=== PATIENT | female | born 1965 | race Caucasian/White ===

== ENCOUNTER 2017-08-27 10:29 | Emergency (ER) | payer BC ==
[2017-08-27 10:36] VITALS: BP 139/86
--- NOTE | 2017-08-27 12:00 | UC ---
Tamera Rich Gabriel, scribed for Leonides Smith MD on 08/27/17 at 1147 . Headache HPI - HPI Summary HPI Summary: This patient is a 52 year old F presenting to [facility] with a chief complaint of MADISON since 5 days ago. The patient rates the pain 5/10 in severity. Patient reports chest congestion, fatigue, dizziness, post nasal drip, some rhinorrhea, lungs burn, heaviness in chest, and SOB. Dizziness is aggravated by movement. Patient denies coughing, fever, LOC, vision or speak changes, numbness or weakness unilaterally in extremities. Patient states she gets an annual sinus infection and bronchitis. She reports that these symptoms feel similar to previous years but slightly worse this year. She describes her dizziness as feeling woozy and off balance. She reports having difficulty driving here ( 3min) due to dizziness. She exercises often. Pt states her mother had peripheral artery disease without excessive smoking or any other risk factors except HTN. - History Of Current Complaint Chief Complaint: UCGeneralIllness Stated Complaint: DIZZY, HEADACHE, SINUS PRESSURE Hx Obtained From: Patient Hx Last Menstrual Period: "years ago." Onset/Duration: Lasting Days - 5, Still Present Onset Of Symptoms: Gradual, Still Present Pain Intensity: 5 Pain Scale Used: 0-10 Numeric Timing: Constant Associated Signs And Symptoms: Positive: Negative - coughing, fever, LOC, vision or speak changes. numbness or weakness unilaterally in extremities., Other (Noted In Comments) - chest congestion, fatigue, dizziness, post nasal drip, some rhinorrhea, lungs burn, heaviness in chest, and SOB - Allergies/Home Medications Allergies/Adverse Reactions: Allergies Allergy/AdvReac Type Severity Reaction Status Date / Time Hydrocodone Allergy Rash And Verified 08/27/17 10:36 Itching Home Medications: Home Medications Diphenhydramine-Phenylephrine- [Mucinex Multi-Symptom Col 12.5-5-325 mg/10Ml] 30 ml PO BID PRN 08/27/17 [History Confirmed 08/27/17] PMH/Surg Hx/FS Hx/Imm Hx Previously Healthy: No Cardiovascular History: Hypertension Other History Of: Negative For: HIV, Hepatitis B, Hepatitis C, Anticoagulant Therapy - Surgical History Surgical History: Yes Surgery Procedure, Year, and Place: ectopic 1984. right foot bunion reconstruction 2000. tubal ligation. partial hysterectomy - Family History Known Family History: Positive: Hypertension, Other - peripheral artery disease Negative: Cardiac Disease - Social History Alcohol Use: Occasionally Substance Use Type: None Smoking Status (MU): Light Every Day Tobacco Smoker Type: Cigarettes Amount Used/How Often: 4-5 cig/day Have You Smoked in the Last Year: No When Did the Patient Quit Smoking/Using Tobacco: 25 years - Immunization History Most Recent Influenza Vaccination: NOT UTD Review of Systems Constitutional: Fatigue ENT: Nasal Discharge, Other - post nasal drip Respiratory: Shortness Of Breath, Other - chest congestion, "burning in lungs", heaviness in chest Neurological: Headache, Other - dizziness All Other Systems Reviewed And Are Negative: Yes Physical Exam Triage Information Reviewed: Yes Appearance: Well-Appearing Vital Signs: Initial Vital Signs Temp 97.2 F 08/27/17 10:32 Pulse 83 08/27/17 10:32 Resp 18 08/27/17 10:32 BP 139/86 08/27/17 10:32 Pulse Ox 99 08/27/17 10:32 Vital Signs Reviewed: Yes Eyes: Positive: Conjunctiva Clear ENT: Positive: Pharynx normal, Nasal congestion, TMs normal Neck: Positive: Supple Respiratory: Positive: Chest non-tender, Lungs clear, Normal breath sounds Cardiovascular: Positive: RRR, No Murmur Abdomen Description: Positive: Nontender Musculoskeletal: Positive: ROM Intact Neurological: Positive: Alert, Muscle Tone Normal Psychological: Positive: Normal Response To Family Skin Exam: Normal Diagnostics - EKG Cardiac Rate: NL Cardiac Rhythm: Sinus: Normal - at 81 BPM , Other Rhythm: Normal - normal MO, no QST abnormalities Headache Course/Dx - Course Course Of Treatment: 52 yr old female with the complaint of chest heaviness, and dizziness, and also right side headache. - Differential Dx/Diagnosis Provider Diagnoses: chest heaviness. headache. sob Discharge - Discharge Plan Condition: Good Disposition: TRANS HIGHER LVL OF CARE FAC Referrals: Mushtaq Harris MD [Primary Care Provider] - The documentation as recorded by the Tamera judge Gabriel accurately reflects the service I personally performed and the decisions made by me, Leonides Smith MD.
[2017-08-28] MEDS ORDERED: Aspirin Low Dose CHEW TAB* 81 MG PO ONE (11:49)
== END 2017-08-27 12:09 | disposition short-term general hospital (02) ==
LOC: UCEAST 10:29
DX: R07.9 Chest pain, unspecified (principal); R51 Headache; R06.02 Shortness of breath; Z88.5 Allergy status to narcotic agent; I10 Essential (primary) hypertension; F17.210 Nicotine dependence, cigarettes, uncomplicated
CPT/HCPCS: 93005; 99213; A9270-GY; G0463

== ENCOUNTER 2017-08-27 12:23 | Emergency (ER) | payer BC ==
[2017-08-27 12:54] LABS: Hematocrit 44 % (35-47); Hemoglobin 15.2 g/dl (12.0-16.0); Mean Corpuscular HGB Conc 35 g/dl (31-36); Mean Corpuscular Hemoglobin 31 pg (27-31); Mean Corpuscular Volume 90 fL (80-97); Mean Platelet Volume 9 um3 (7.4-10.4); Red Blood Count 4.86 10^6/ul (4.0-5.4); Red Cell Distribution Width 13 % (10.5-15); White Blood Count 8.6 10^3/ul (3.5-10.8)
--- NOTE | 2017-08-27 13:20 | RAD ---
HISTORY: Chest pain COMPARISONS: None VIEWS: 1: frontal portable view of the chest at 12:50 PM FINDINGS: LINES AND TUBES: None. CARDIOMEDIASTINAL SILHOUETTE: The cardiomediastinal silhouette is normal for portable technique. PLEURA: The costophrenic angles are sharp. No pleural abnormalities are noted. LUNG PARENCHYMA: The lungs are clear. ABDOMEN: The upper abdomen is clear. There is no subphrenic gas. BONES AND SOFT TISSUES: No bone or soft tissue abnormalities are noted. IMPRESSION: NO ACTIVE CARDIOPULMONARY DISEASE.
[2017-08-27 13:23] LABS: Albumin 4.2 g/dL (3.2-5.2); BUN/Creatinine Ratio 12.9 (8-20); Calcium 9.1 mg/dL (8.6-10.3); Globulin 2.5 g/dL (2-4); Magnesium 2.2 mg/dL (1.9-2.7); Potassium 4.1 mmol/L (3.5-5.0); Total Bilirubin 0.4 mg/dL (0.2-1.0); Total Protein 6.7 g/dL (6.4-8.9)
[2017-08-27 13:37] LABS: TSH (Thyroid Stimulating Horm) 1.45 mcIU/mL (0.34-5.60)
[2017-08-27 13:59] VITALS: BP 137/79
--- NOTE | 2017-08-27 21:10 | ED ---
Nicole Rich Alfonso, scribed for Gillian Buckley MD on 08/27/17 at 1343 . HPI Chest Pain - HPI Summary HPI Summary: This patient is a 52 year old F BIBA, transferred from [facility] to [facility] with a chief complaint of chest tightness, heaviness, and pressure, MADISON, dizziness since a few days ago. She states my chest feels inflamed. Pt with hx asthma and sinusitis. States that this feels like her yearly sinus infection with asthmatic exacerbation, but agreed to further evaluation of the chest tightness as recommended by Dr. Smith at urgent care. The patient rates the pain 0/10 in severity. Symptoms aggravated by nothing. Symptoms alleviated by Mucinex cough and cold since 08/24/17, flonase, and saline irrigation. Patient reports dizziness (similar to previous episodes of dizziness with sinusitis), sinus pressure (since 2 weeks ago, recurrent every year), and sore throat. Patient denies fever, ear ache, rhinorrhea, cough, and wheezing. - History of Current Complaint Chief Complaint: EDChestPainROMI Time Seen by Provider: 08/27/17 12:37 Hx Obtained From: Patient, EMS, Medical Records Hx Last Menstrual Period: "years ago." Onset/Duration: Started Days Ago, Still Present Timing: Constant Initial Severity: Mild Current Severity: Moderate Pain Intensity: 0 Pain Scale Used: 0-10 Numeric Chest Pain Location: Mid Sternal Chest Pain Radiates: No Character: Heaviness, Pressure/Squeezing, Tightness Aggravating Factor(s): Nothing Alleviating Factor(s): Other: - Mucinex cough and cold since 08/24/17, flonase, and saline irrigation Associated Signs and Symptoms: Positive: Chest Pain, Nasal Congestion, Sinus Discomfrot, Other: - dizziness (similar to previous episodes of dizziness), sinus pressure (since 2 weeks ago, recurrent every year), and sore throat. Patient denies fever, ear ache, rhinorrhea, cough, and wheezing. - Allergy/Home Medications Allergies/Adverse Reactions: Allergies Allergy/AdvReac Type Severity Reaction Status Date / Time Hydrocodone Allergy Rash And Verified 08/27/17 12:36 Itching Home Medications: Home Medications Citalopram TAB* [CeleXA TAB*] 20 mg PO DAILY 08/27/17 [History Confirmed ] Diphenhydramine-Acetaminophen [Acetaminophen Pm Extra St 25-500 mg] 1 tab PO BEDTIME PRN 08/27/17 [History Confirmed 08/27/17] PMH/Surg Hx/FS Hx/Imm Hx Endocrine/Hematology History: Denies: Hx Anticoagulant Therapy, Hx Diabetes, Hx Thyroid Disease Cardiovascular History: Reports: Hx Hypertension Denies: Hx Congestive Heart Failure, Hx Deep Vein Thrombosis, Hx Myocardial Infarction, Hx Pacemaker/ICD Respiratory History: Reports: Hx Asthma Denies: Hx Chronic Obstructive Pulmonary Disease (COPD), Hx Lung Cancer, Hx Pneumonia, Hx Pulmonary Embolism GI History: Denies: Hx Gall Bladder Disease, Hx Gastrointestinal Bleed, Hx Ulcer, Hx Urosepsis History: Denies: Hx Kidney Stones, Hx Renal Disease Neurological History: Denies: Hx Dementia, Hx Migraine, Hx Seizures, Hx Transient Ischemic Attacks (TIA) Psychiatric History: Denies: Hx Anxiety, Hx Depression, Hx Schizophrenia, Hx Bipolar Disorder - Surgical History Surgery Procedure, Year, and Place: ectopic 1984. right foot bunion reconstruction 2000. tubal ligation. partial hysterectomy Infectious Disease History: No Infectious Disease History: Denies: Hx Clostridium Difficile, Hx Hepatitis, Hx Human Immunodeficiency Virus (HIV), Hx of Known/Suspected MRSA, Hx Shingles, Hx Tuberculosis, Traveled Outside the [place] in Last 30 Days - Family History Known Family History: Positive: Hypertension, Other - peripheral artery disease Negative: Cardiac Disease - Social History Alcohol Use: Occasionally Hx Substance Use: No Substance Use Type: Reports: None Hx Tobacco Use: Yes Smoking Status (MU): Light Every Day Tobacco Smoker Type: Cigarettes Amount Used/How Often: 4-5 cig/day Have You Smoked in the Last Year: No Review of Systems Negative: Fever Positive: Sore Throat, Other - Sinus pressure. Negative: Ear Ache, Nasal Discharge Positive: Chest Pain Positive: Other - Negative wheezing. Negative: Cough Gastrointestinal: Negative Musculoskeletal: Negative Positive: Other - dizziness Positive: Headache - right sided Psychological: Normal All Other Systems Reviewed And Are Negative: Yes Physical Exam Triage Information Reviewed: Yes Vital Signs On Initial Exam: Initial Vitals Temp Pulse Resp BP Pulse Ox 98.1 F 65 14 147/77 100 08/27/17 12:31 08/27/17 12:31 08/27/17 12:31 08/27/17 12:31 08/27/17 12:31 Vital Signs Reviewed: Yes Appearance: Positive: No Pain Distress, Well-Nourished, Ill-Appearing - Mild Skin: Positive: Warm, Skin Color Reflects Adequate Perfusion Head/Face: Positive: Normal Head/Face Inspection Eyes: Positive: EOMI, Conjunctiva Clear ENT: Positive: Normal ENT inspection, Pharynx normal, Nasal congestion, TMs normal, Sinus tenderness Neck: Positive: Supple, Nontender, No Lymphadenopathy Respiratory/Lung Sounds: Positive: Clear to Auscultation, Breath Sounds Present , Other - no respiratory distress Cardiovascular: Positive: RRR, Pulses are Symmetrical in both Upper and Lower Extremities, Other - brisk capillary refill. Negative: Murmur Abdomen Description: Positive: Nontender, No Organomegaly, Soft Bowel Sounds: Positive: Present Musculoskeletal: Positive: Strength/ROM Intact, Other - no calf tenderness, no edema Neurological: Positive: Alert, Oriented to Person Place, Time, Facial Symmetry, Speech Normal, Other - muscle tone normal, facial symmetry, speech normal, sensory/motor intact Psychiatric: Positive: Normal - [place] Coma Scale Coma Scale Total: 15 Diagnostics - Vital Signs Vital Signs Temp Pulse Resp BP Pulse Ox 08/27/17 12:33 63 10 100 08/27/17 12:31 98.1 F 65 14 147/77 100 - Laboratory Lab Results: Lab Results 08/27/17 08/27/17 08/27/17 Range/Units 11:55 11:55 11:55 WBC 8.6 (3.5-10.8) 10^3/ul RBC 4.86 (4.0-5.4) 10^6/ul Hgb 15.2 (12.0-16.0) g/dl Hct 44 (35-47) % MCV 90 (80-97) fL MCH 31 (27-31) pg MCHC 35 (31-36) g/dl RDW 13 (10.5-15) % Plt Count 244 (150-450) 10^3/ul MPV 9 (7.4-10.4) um3 Neut % (Auto) 72.0 (38-83) % Lymph % (Auto) 18.9 L (25-47) % [place] % (Auto) 7.2 (1-9) % Eos % (Auto) 1.3 (0-6) % Baso % (Auto) 0.6 (0-2) % Absolute Neuts (auto) 6.2 (1.5-7.7) 10^3/ul Absolute Lymphs (auto) 1.6 (1.0-4.8) 10^3/ul Absolute Monos (auto) 0.6 (0-0.8) 10^3/ul Absolute Eos (auto) 0.1 (0-0.6) 10^3/ul Absolute Basos (auto) 0.1 (0-0.2) 10^3/ul Absolute Nucleated RBC 0 10^3/ul Nucleated RBC % 0 INR (Anticoag Therapy) (0.77-1.02) D-Dimer, Quantitative (Less Than 230) ng/mL Sodium 136 (133-145) mmol/L Potassium 4.1 (3.5-5.0) mmol/L Chloride 101 (101-111) mmol/L Carbon Dioxide 28 (22-32) mmol/L Anion Gap 7 (2-11) mmol/L BUN 11 (6-24) mg/dL Creatinine 0.85 (0.51-0.95) mg/dL Est GFR ( Amer) 90.0 (>60) Est GFR (Non-Af Amer) 70.0 (>60) BUN/Creatinine Ratio 12.9 (8-20) Glucose 89 (70-100) mg/dL Lactic Acid (0.5-2.0) mmol/L Calcium 9.1 (8.6-10.3) mg/dL Magnesium 2.2 (1.9-2.7) mg/dL Total Bilirubin 0.40 (0.2-1.0) mg/dL AST 17 (13-39) U/L ALT 15 (7-52) U/L Alkaline Phosphatase 49 (34-104) U/L Total Creatine Kinase 37 (10-223) U/L CK-MB (CK-2) 1.4 (0.6-6.3) ng/mL Troponin I 0.00 (<0.04) ng/mL B-Natriuretic Peptide 21 ( - 100) pg/mL Total Protein 6.7 (6.4-8.9) g/dL Albumin 4.2 (3.2-5.2) g/dL Globulin 2.5 (2-4) g/dL Albumin/Globulin Ratio 1.7 (1-3) TSH 1.45 (0.34-5.60) mcIU/mL 08/27/17 08/27/17 Range/Units 11:55 11:55 WBC (3.5-10.8) 10^3/ul RBC (4.0-5.4) 10^6/ul Hgb (12.0-16.0) g/dl Hct (35-47) % MCV (80-97) fL MCH (27-31) pg MCHC (31-36) g/dl RDW (10.5-15) % Plt Count (150-450) 10^3/ul MPV (7.4-10.4) um3 Neut % (Auto) (38-83) % Lymph % (Auto) (25-47) % [place] % (Auto) (1-9) % Eos % (Auto) (0-6) % Baso % (Auto) (0-2) % Absolute Neuts (auto) (1.5-7.7) 10^3/ul Absolute Lymphs (auto) (1.0-4.8) 10^3/ul Absolute Monos (auto) (0-0.8) 10^3/ul Absolute Eos (auto) (0-0.6) 10^3/ul Absolute Basos (auto) (0-0.2) 10^3/ul Absolute Nucleated RBC 10^3/ul Nucleated RBC % INR (Anticoag Therapy) 0.86 (0.77-1.02) D-Dimer, Quantitative < 200 (Less Than 230) ng/mL Sodium (133-145) mmol/L Potassium (3.5-5.0) mmol/L Chloride (101-111) mmol/L Carbon Dioxide (22-32) mmol/L Anion Gap (2-11) mmol/L BUN (6-24) mg/dL Creatinine (0.51-0.95) mg/dL Est GFR ( Amer) (>60) Est GFR (Non-Af Amer) (>60) BUN/Creatinine Ratio (8-20) Glucose (70-100) mg/dL Lactic Acid 1.0 (0.5-2.0) mmol/L Calcium (8.6-10.3) mg/dL Magnesium (1.9-2.7) mg/dL Total Bilirubin (0.2-1.0) mg/dL AST (13-39) U/L ALT (7-52) U/L Alkaline Phosphatase (34-104) U/L Total Creatine Kinase (10-223) U/L CK-MB (CK-2) (0.6-6.3) ng/mL Troponin I (<0.04) ng/mL B-Natriuretic Peptide ( - 100) pg/mL Total Protein (6.4-8.9) g/dL Albumin (3.2-5.2) g/dL Globulin (2-4) g/dL Albumin/Globulin Ratio (1-3) TSH (0.34-5.60) mcIU/mL Result Diagrams: 08/27/17 11:55 08/27/17 11:55 Lab Statement: Any lab studies that have been ordered have been reviewed, and results considered in the medical decision making process. - Radiology CXR Radiology Interpretation Completed By: Radiologist - NO ACTIVE CARDIOPULMONARY DISEASE. ED physician has reviewed this radiology report. ED physician has reviewed this radiology report. - EKG 1243 Cardiac Rate: NL EKG Rhythm: Sinus Rhythm - 66 BPM Ectopy: None EKG Interpretation: Nml AV/IV CT, QTc, and axis. NAC. EKG Comparison: No Significant Change - compared with UC EKG Chest Pain Course/Dx - Course Assessment/Plan: Pt had labs, xray, EKG that were unremarkable. Patients medications reviewed this visit. Patient will be discharged with Augmentin prescription and follow up from PCP. She will continue her flonase and saline irrigations. The patient is agreeable with this plan. - Chest Pain Differential Diagnosis/HQI/PQRI: Acute AL, ACS, Angina, Chest Wall, GI Disease, Lower Respiratory Infection, Pulmonary Embolism, Other: - asthmatic exacerbation - Diagnoses Provider Diagnoses: Hypertension, poor control, Sinusitis, Chest pain, atypical, Asthma exacerbation Discharge - Discharge Plan Condition: Stable Disposition: HOME Prescriptions: Amoxicillin/Clavulanate TAB* [Augmentin TAB 875*] 875 mg PO BID #20 tab predniSONE TAB* [Deltasone TAB*] 10 mg PO DAILY #30 tab Patient Education Materials: Chest Pain (ED), Asthma (ED), Sinusitis (ED) Forms: *Work Release Referrals: Mushtaq Harris MD [Primary Care Provider] - 2 Days Additional Instructions: RETURN TO THE EMERGENCY DEPARTMENT FOR CHANGING OR WORSENING SYMPTOMS. The documentation as recorded by the Nicole judge Alfonso accurately reflects the service I personally performed and the decisions made by , Gillian Buckley MD.
== END 2017-08-27 14:03 | disposition home or self-care (01) ==
LOC: ED 12:23
DX: R07.89 Other chest pain (principal); J45.901 Unspecified asthma with (acute) exacerbation; J32.9 Chronic sinusitis, unspecified; I10 Essential (primary) hypertension; Z88.5 Allergy status to narcotic agent; F17.210 Nicotine dependence, cigarettes, uncomplicated
CPT/HCPCS: 36415; 71010; 80053; 82550; 82553; 83605; 83735; 83880; 84443; 84484; 85025; 85379; 85610; 93005; 99282

== ENCOUNTER 2019-03-31 14:42 | Emergency (ER) | payer SELFPAY ==
--- NOTE | 2019-03-31 14:56 | ED ---
HPI Chest Pain - HPI Summary HPI Summary: This patient is a 53 year old F presenting to [facility] by EMS with a chief complaint of pain and pressure in central chest since late morning on 03/31/19. Pt was trying to pack in a very hot apartment, and resting, and left arm started to feel tingly. Pt has been feel general lousiness for the last couple of weeks. Pt has a Hx of anxiety, and panic attacks. The patient rates the pain 3/10 in severity. Patient reports dizziness, pressure in chest, SOB, diarrhea. Pt denies any fever, chills, erythema of eyes, sore throat, cough, abdominal pain, N/V, dysuria, hematuria, myalgia, edema, rash. Pt has no FHx of heart disease. - History of Current Complaint Time Seen by Provider: 03/31/19 14:45 Hx Obtained From: Patient Hx Last Menstrual Period: "years ago." Onset/Duration: Started Hours Ago, Still Present Timing: Constant Current Severity: Mild Pain Intensity: 3 Pain Scale Used: 0-10 Numeric Character: Pressure/Squeezing Aggravating Factor(s): Nothing Alleviating Factor(s): Nothing Associated Signs and Symptoms: Positive: Negative - chills, erythema of eyes, sore throat, dysuria, hematuria, myalgia, edema, rash, Chest Pain, Anxiety, Recent Stress, Tingling, Dizziness, Shortness of Breath. Negative: Fever, Nausea, Cough, Abdominal Pain, Vomiting - Allergy/Home Medications Allergies/Adverse Reactions: Allergies Allergy/AdvReac Type Severity Reaction Status Date / Time hydrocodone Allergy Rash And Verified 03/31/19 16:37 Itching Home Medications: Home Medications Albuterol HFA INHALER* [Ventolin HFA Inhaler*] 2 puff INH Q4H PRN 03/31/19 [ History Confirmed 03/31/19] diPHENhydraMINE PO* [Benadryl PO 25 MG TAB*] 25 mg PO Q6H PRN 03/31/19 [History Confirmed 03/31/19] PMH/Surg Hx/FS Hx/Imm Hx Endocrine/Hematology History: Denies: Hx Anticoagulant Therapy, Hx Diabetes, Hx Thyroid Disease Cardiovascular History: Reports: Hx Hypertension Denies: Hx Congestive Heart Failure, Hx Deep Vein Thrombosis, Hx Myocardial Infarction, Hx Pacemaker/ICD Respiratory History: Reports: Hx Asthma Denies: Hx Chronic Obstructive Pulmonary Disease (COPD), Hx Lung Cancer, Hx Pneumonia, Hx Pulmonary Embolism GI History: Denies: Hx Gall Bladder Disease, Hx Gastrointestinal Bleed, Hx Ulcer, Hx Urosepsis History: Denies: Hx Kidney Stones, Hx Renal Disease Neurological History: Denies: Hx Dementia, Hx Migraine, Hx Seizures, Hx Transient Ischemic Attacks (TIA) Psychiatric History: Denies: Hx Anxiety, Hx Depression, Hx Schizophrenia, Hx Bipolar Disorder - Surgical History Surgery Procedure, Year, and Place: ectopic 1984. right foot bunion reconstruction 2000. tubal ligation. partial hysterectomy Infectious Disease History: Denies: Hx Clostridium Difficile, Hx Hepatitis, Hx Human Immunodeficiency Virus (HIV), Hx of Known/Suspected MRSA, Hx Shingles, Hx Tuberculosis - Family History Known Family History: Positive: Hypertension, Other - peripheral artery disease Negative: Cardiac Disease - Social History Occupation: Unemployed Alcohol Use: Occasionally Hx Substance Use: No Substance Use Type: Reports: None Hx Tobacco Use: Yes Smoking Status (MU): Light Every Day Tobacco Smoker Type: Cigarettes Amount Used/How Often: 4-5 cig/day Have You Smoked in the Last Year: No Review of Systems Negative: Fever, Chills Negative: Erythema Negative: Sore Throat Positive: Chest Pain Positive: Shortness Of Breath. Negative: Cough Positive: Diarrhea. Negative: Abdominal Pain, Vomiting, Nausea Negative: dysuria, hematuria Positive: Other - pos - tingling in left arm. Negative: Myalgia, Edema Negative: Rash Neurological: Other - pos - dizziness Positive: Anxious All Other Systems Reviewed And Are Negative: Yes Physical Exam - Summary Physical Exam Summary: Constitutional: Well-developed, Well-nourished, Alert. (-) Distressed Skin: Warm, Dry HENT: Normocephalic; Atraumatic Eyes: Conjunctiva normal Neck: Musculoskeletal ROM normal neck. (-) JVD, (-) Stridor, (-) Tracheal deviation Cardio: Rhythm regular, rate normal, Heart sounds normal; Intact distal pulses; The pedal pulses are 2+ and symmetric. Radial pulses are 2+ and symmetric. (-) Murmur Pulmonary/Chest wall: Effort normal. (-) Respiratory distress, (-) Wheezes, (-) Rales Abd: Soft, (-) tenderness, (-) Distension, (-) Guarding, (-) Rebound Musculoskeletal: (-) Edema Lymph: (-) Cervical adenopathy Neuro: Alert, Oriented x3 Psych: Anxious Appearing Triage Information Reviewed: Yes Vital Signs On Initial Exam: Initial Vital Signs Temp 97.7 F 03/31/19 14:55 Pulse 80 03/31/19 14:55 Resp 14 03/31/19 14:55 BP 148/93 03/31/19 14:55 Pulse Ox 97 03/31/19 14:55 Vital Signs Reviewed: Yes Diagnostics - Laboratory Result Diagrams: 03/31/19 15:01 03/31/19 15:01 Lab Statement: Any lab studies that have been ordered have been reviewed, and results considered in the medical decision making process. - Radiology CXR Radiology Interpretation Completed By: Radiologist Summary of Radiographic Findings: CXR reveals, per radiologist, IMPRESSION: NO EVIDENCE FOR ACTIVE CARDIOPULMONARY DISEASE. ED physician has reviewed this radiology report. - EKG 1451 Cardiac Rate: NL - 83 bpm EKG Rhythm: Sinus Rhythm Summary of EKG Findings: EKG at 1451 reveals normal sinus rhythm 83 bpm, no STEMI. Chest Pain Course/Dx - Course Course Of Treatment: This patient is a 53 year old F presenting to [facility] by EMS with a chief complaint of pain and pressure in central chest since late morning on 03/31/19. Pt was trying to pack in a very hot apartment, and resting, and left arm started to feel tingly. Pt has been feel general lousiness for the last couple of weeks. Pt has a Hx of anxiety, and panic attacks. The patient rates the pain 3/10 in severity. Patient reports dizziness, pressure in chest, SOB, diarrhea. Physical Exam normal except pt is anxious appearing. EKG at 1451 reveals normal sinus rhythm 83 bpm, no STEMI. CXR reveals, per radiologist , IMPRESSION: NO EVIDENCE FOR ACTIVE CARDIOPULMONARY DISEASE. Blood work obtained. Troponin is 0.0. MCH is 32. In the ED course the patient was given aspirin 324 mg PO, Nitroglycerin 0.4 mg SL. This patient was signed out from Dr. Arteaga to Dr. Meza at 1600 on 03/31/19, pending disposition, awaiting consult from hospitalist regarding stress test from hospital medicine. Discharge - Sign-Out/Discharge Documenting (check all that apply): Sign-Out Patient Signing out patient TO: Lucila Meza - This patient was signed out from Dr. Arteaga to Dr. Meza at 1600 on 03/31/19 - Discharge Plan Referrals: Mushtaq Harris MD [Primary Care Provider] - - Attestation Statements Document Initiated by Scribe: Yes Documenting Scribe: Apple Johnson Provider For Whom Scribe is Documenting (Include Credential): Dr. Tavo Arteaga MD Scribe Attestation: I, Apple Johnson, scribed for Dr. Tavo Arteaga MD on 03/31/19 at 1745.
[2019-03-31] MEDS ORDERED: Aspirin 81 mg CHEW TAB* 81 MG TAB.CHEW PO ONE (15:06)
[2019-03-31] MEDS ORDERED: Nitroglycerin TAB 0.4 MG* 0.4 MG TAB SL ONE (15:06)
[2019-03-31 15:16] LABS: ABS Basophils 0.1 10^3/ul (0-0.2); ABS Eosinophils 0.1 10^3/ul (0-0.6); ABS Lymphocytes 1.6 10^3/ul (1.0-4.8); ABS Monocytes 0.5 10^3/ul (0-0.8); ABS Neutrophils 4.2 10^3/ul (1.5-7.7); Eosinophil % 0.8 %; Hematocrit 41 % (35-47); Hemoglobin 14.3 g/dL (12.0-16.0); Lymphocyte % 25.5 %; Mean Corpuscular HGB Conc 35 g/dL (31-36); Mean Corpuscular Hemoglobin 32 pg (27-31); Mean Corpuscular Volume 92 fL (80-97); Mean Platelet Volume 7.5 fL (7.4-10.4); Platelet Count 288 10^3/uL (150-450); Red Blood Count 4.51 10^6 /uL (3.70-4.87); Red Cell Distribution Width 13 % (10-15); White Blood Count 6.4 10^3/uL (3.5-10.8)
[2019-03-31 15:51] LABS: Albumin 4.2 g/dL (3.2-5.2); Albumin/Globulin Ratio 1.7 (1-3); BUN/Creatinine Ratio 12.1 (8-20); Calcium 9.2 mg/dL (8.6-10.3); EGFR African American 77.9 (>60); EGFR Non-African American 64.4 (>60); Globulin 2.5 g/dL (2-4); Total Bilirubin 0.4 mg/dL (0.2-1.0); Total Protein 6.7 g/dL (6.4-8.9)
--- NOTE | 2019-03-31 16:06 | ED ---
Progress - Progress Note Progress Note: Per HPI, "This patient is a 53 year old F presenting to [facility] by EMS with a chief complaint of pain and pressure in central chest since late morning on 03/31. Pt was trying to pack in a very hot apartment, and resting, and left arm started to feel tingly. Pt has been feel general lousiness for the last couple of weeks. Pt has a Hx of anxiety, and panic attacks. The patient rates the pain 3/10 in severity. Patient reports dizziness, pressure in chest, SOB, diarrhea." This patient was signed out from Dr. Arteaga to Dr. Meza at 1600 on 03/31/19 , pending disposition, awaiting consult from hospitalist regarding stress test from hospital medicine. Repeat troponin. Troponin x2 is negative. Hospitalist saw pt and will arrange for an outpatient stress test. The patients condition is stable and will be discharged to home with Dx of chest pain. Course/Dx - Course Course Of Treatment: This patient was signed out from Dr. Arteaga to Dr. Meza at 1600 on 03/31/19, pending disposition, awaiting consult from hospitalist regarding stress test from hospital medicine. Repeat troponin. Troponin x2 is negative. Hospitalist saw pt and will arrange for an outpatient stress test. The patients condition is stable and will be discharged to home with Dx of chest pain. - Diagnoses Provider Diagnoses: Chest pain Discharge - Sign-Out/Discharge Documenting (check all that apply): Patient Departure - Discharge Patient Received Moderate/Deep Sedation with Procedure: No - Discharge Plan Condition: Stable Disposition: HOME Patient Education Materials: Chest Pain (ED) Referrals: Mushtaq Harris MD [Primary Care Provider] - 3 Days Additional Instructions: Follow up with out patient stress test, they will call pt to schedule it. Follow up with primary care physician within 2-3 days. RETURN TO THE ED WITH ANY NEW OR WORSENING SYMPTOMS. - Billing Disposition and Condition Condition: STABLE Disposition: Home - Attestation Statements Document Initiated by Scribe: Yes Documenting Scribe: Apple Johnson Provider For Whom Scribe is Documenting (Include Credential): Dr Lucila Meza MD Scribe Attestation: Apple Rich scribed for Dr Lucila Meza MD on 03/31/19 at 1904. Scribe Documentation Reviewed: Yes Provider Attestation: The documentation as recorded by the scribe, Apple Johnson accurately reflects the service I personally performed and the decisions made by me, Dr Lucila Meza MD Status of Scribe Document: Viewed
[2019-03-31 18:39] VITALS: BP 140/94
--- NOTE | 2019-03-31 23:59 | CONS ---
CONSULTATION NOTE: DATE OF CONSULT: 03/31/19 PRIMARY CARE PROVIDER: Dr. Harris. REQUESTING PROVIDER: Dr. Tavo Arteaga. REASON FOR CONSULTATION: Chest pain. HISTORY OF PRESENT ILLNESS: Ms. Joyner is a 53-year-old female with a history of hypertension and depression who presents to the emergency room with complaints of chest pain. The patient states she awakened from sleep this morning with centrally located chest pressure. She states that the pain has essentially been present all day long, but waxing and waning intensity. She describes this as pressure like pain. She states that the pain had subsided some, however, just prior to my evaluation became little more severe, located in the epigastrium and radiating up higher into the chest. She does admit to mild difficulty with taking a deep breath and dizziness and sweatiness. The patient has never had anything like this in the past, though does state she has had a stress test in the past. She admits to a significant amount of stress recently. She states that she started a new job approximately 14 months ago that increased her stress quite tremendously. She has since quit that job in October, but continues to have a very high level of stress in her life. She denies any recent long distance travel. She has been packing up boxes and doing some lifting of these, though is trying not to lift too much. PAST MEDICAL HISTORY: 1. Hypertension. 2. Depression. PAST SURGICAL HISTORY: 1. Right bunionectomy. 2. Ectopic . 3. Hysterectomy. MEDICATIONS: 1. Benadryl 25 mg p.o. q.6 hours p.r.n. allergies. 2. Celexa 20 mg p.o. daily. 3. Albuterol 2 puffs inhaled q.4 hours p.r.n. shortness of breath. 4. Lisinopril/hydrochlorothiazide 10/12.5 one tab p.o. daily. ALLERGIES: HYDROCODONE. FAMILY HISTORY: Mom is living, she is in her 70s. She has no history of coronary artery disease. She does have hypertension. Dad has at the age of 54 from lung cancer. SOCIAL HISTORY: The patient is working on quitting smoking. She has been using an e-cigarette to try to do so. She previously was smoking 1.5 pack per day and had done so off and on since she was a teenager. She states recently she has been drinking more alcohol on a daily basis. She states typically 2 to 3 glasses of wine a day, but sometimes more than this. She worked in HR previously, she is currently unemployed. She is not . She has 3 children. Her daughter Sari is her healthcare proxy. REVIEW OF SYSTEMS: A complete 11-system review of systems was obtained. Pertinent positives and negatives are as per HPI and in addition the patient does also admit to fluctuating between diarrhea and constipation. She also admits to severe anxiety and depression at this point. PHYSICAL EXAM: Blood pressure 140/94, pulse 83, respirations 17, temp 97.7, and O2 sat 98% on room air. General: The patient is a well-developed middle- aged female seen sitting up in the stretcher in no acute distress. HEENT: Pupils are equal and round. Extraocular muscles are intact. Oropharynx is clear. Oral mucosa is moist. Cardiac: Normal S1 and S2. Regular, rate and rhythm. I do not appreciate any murmurs. Pulmonary: Lungs are clear to auscultation bilaterally. Abdomen: Bowel sounds present. Abdomen is soft, nontender, nondistended. Musculoskeletal: There is no cyanosis or clubbing of the digits. There is full active range of motion all 4 extremities. Skin: Warm and dry. There are no rashes. Neuro: Cranial nerves II through XII are grossly intact. Sensation is intact to light touch throughout. Strength is 5/ 5 and symmetric to both upper and lower extremities bilaterally. Psych: The patient is alert. She is oriented x3. When we first start our evaluation, the patient does appear to be very slow to answer questions, almost nervous and slightly depressed. DIAGNOSTIC STUDIES/LAB DATA: WBC 6.4, hemoglobin 14.3, hematocrit 41, platelets 288. D-dimer less than 200. Sodium 135, potassium 4.0, chloride 101 , CO2 25, BUN 11, creatinine 0.91, glucose 100, calcium 9.2, bilirubin 0.4. AST 22, ALT 21, alk phos 63, troponin 0 x2, albumin 4.2. EKG reveals normal sinus rhythm without any acute ST-T wave abnormalities. ASSESSMENT AND PLAN: Ms. Joyner is a 53-year-old female with a history of hypertension and smoking history, who presents to the emergency room with complaints of chest pain. 1. Chest pain. At this point, the patient has had 1 continuous episode of chest pain. Her REG risk score is essentially 0 as she gets 0 points for age, 0 for greater than 3 cardiac risk factors, 0 for known CAD, 0 for aspirin use in the past 7 days, 0 for greater than 2 episodes of angina in the last 24 hours , 0 for EKG changes, and 0 for positive cardiac marker. At this point, it is felt that the patient is able to be discharged home and arrange for an outpatient stress test. I have placed observation outpatient stress test order in the patient's chart. With her completely normal EKG, I feel that an exercise treadmill stress test is an appropriate way to start. I informed the patient, she will be contacted by the [facility] tomorrow to be set up for the stress test as an outpatient. I am suspicious that the patient's chest pain may be related to depression/anxiety. The patient has been instructed to return to the emergency room if the quality of chest pain changes , becomes more severe, or if she has any concerning symptoms. The patient is aware she can always return to the emergency room and at that point, she will likely be admitted under observation status. 2. Hypertension. The patient will continue on her lisinopril/ hydrochlorothiazide. 3. Depression. Continue Celexa. 4. The patient will be discharged home. [id number]/[facility] #: [id number] EULOGIO
== END 2019-03-31 18:46 | disposition home or self-care (01) ==
LOC: ED 14:42
DX: R07.89 Other chest pain (principal); R06.02 Shortness of breath; R42 Dizziness and giddiness; R19.7 Diarrhea, unspecified; I10 Essential (primary) hypertension; J45.909 Unspecified asthma, uncomplicated; F32.9 Major depressive disorder, single episode, unspecified; Z88.5 Allergy status to narcotic agent; F17.210 Nicotine dependence, cigarettes, uncomplicated
CPT/HCPCS: 36415; 71045; 80053; 83605; 84484; 85025; 85379; 93005; 99284; A9270-GY